=== PATIENT | male | born 1975 | race Caucasian/White ===

== ENCOUNTER 2016-07-19 10:23 | Emergency (ER) | payer BC ==
[2016-07-19 11:32] VITALS: BP 150/93
--- NOTE | 2016-07-19 11:46 | UC ---
Back Pain HPI - HPI Summary HPI Summary: MID UPPER BACK PAIN X 1 DAY + FELT A POP HAS HE WAS MOVING HIS ARMS THIS MORNING WITH A SUDDEN ONSET PAIN ON THE MID UPPER BACK NO RADIATION OF THE PAIN, NO WEAKNESS OF UPPER EXT. NO NUMBNESS OR TINGLING . - History of Current Complaint Chief Complaint: UCBackPain Stated Complaint: UPPER BACK/NECK PAIN Time Seen by Provider: 07/19/16 11:23 Hx Obtained From: Patient Onset/Duration: Sudden Onset, Lasting Days - 1, Still Present Timing: Constant Severity Initially: Moderate Severity Currently: Moderate Back Pain: Is Discrete @ - MID UPPER BACK Aggravating: Movement Associated Signs And Symptoms: Negative: Swelling, Redness, Bruising, Fever, Weakness, Numbness, Tingling - Allergies/Home Medications Allergies/Adverse Reactions: Allergies Allergy/AdvReac Type Severity Reaction Status Date / Time No Known Allergies Allergy Verified 08/25/14 08:46 PMH/Surg Hx/FS Hx/Imm Hx Cardiovascular History Of: Reports: Hypertension - Surgical History Surgical History: None - Family History Known Family History: Negative: Diabetes - Social History Alcohol Use: 6-12 a few times a week Substance Use Type: None Smoking Status (MU): Never Smoked Tobacco Review of Systems Constitutional: Negative Skin: Negative Eyes: Negative ENT: Negative Respiratory: Negative Cardiovascular: Negative All Other Systems Reviewed And Are Negative: Yes Physical Exam Triage Information Reviewed: Yes Appearance: Well-Appearing, Obese Vital Signs: Initial Vital Signs Temp 98.2 F 07/19/16 11:26 Pulse 92 07/19/16 11:26 Resp 16 07/19/16 11:26 BP 150/93 07/19/16 11:26 Pulse Ox 97 07/19/16 11:26 Vital Signs Reviewed: Yes Eyes: Positive: Conjunctiva Clear ENT: Positive: Normal ENT inspection, Hearing grossly normal, Pharynx normal Neck: Positive: Supple, Nontender, No Lymphadenopathy Respiratory Exam: Normal Respiratory: Positive: Chest non-tender, Lungs clear, Normal breath sounds Cardiovascular: Positive: RRR, No Murmur, Pulses Normal Abdominal Exam: Normal Musculoskeletal: Positive: Other: - UPPER BACK : NO SWELLING, NO ERYTHEMA , + TENDERNESS MID UPPER BACK INCREASE PAIN WITH ANY MOVEMENTS Neurological Exam: Normal Back Pain Course/Dx - Differential Dx/Diagnosis Provider Diagnoses: UPPER BACK STRAIN Discharge - Discharge Plan Condition: Stable Disposition: HOME Prescriptions: Cyclobenzaprine TAB* [Flexeril TAB*] 10 mg PO BID #20 tab Naproxen [Naproxen 500 MG TABS] 500 mg PO BID #20 tab Patient Education Materials: Thoracic Back Strain (ED) Forms: *Work Release Referrals: Felix Carballo MD [Primary Care Provider] - If Needed
== END 2016-07-19 12:08 | disposition home or self-care (01) ==
LOC: UCCORT 10:23
DX: S29.012A Strain of muscle and tendon of back wall of thorax, initial encounter (principal); E66.9 Obesity, unspecified; X58.XXXA Exposure to other specified factors, initial encounter; Y92.9 Unspecified place or not applicable
CPT/HCPCS: 99212; G0463

== ENCOUNTER 2017-01-15 07:03 | Emergency (ER) | payer BC ==
--- NOTE | 2017-01-15 07:17 | UC ---
Throat Pain/Nasal Keegan HPI - HPI Summary HPI Summary: Sore throat x 2 to 3 days with exudate noted on tonsils this morning. Sleep disrupted by sore throat, no dysphagia. - History of Current Complaint Chief Complaint: UCGeneralIllness Stated Complaint: SORE THROAT Time Seen by Provider: 01/15/17 07:14 Hx Obtained From: Patient Onset/Duration: Gradual Onset, Lasting Days - 2 Severity: Mild Cough: Nonproductive Associated Signs & Symptoms: Positive: Negative - Epiglottits Risk Factors Epiglottis Risk Factors: Negative - Allergies/Home Medications Allergies/Adverse Reactions: Allergies Allergy/AdvReac Type Severity Reaction Status Date / Time No Known Allergies Allergy Verified 01/15/17 07:08 Home Medications: Home Medications NK [No Home Medications Reported] 01/15/17 [History Confirmed 01/15/17] PMH/Surg Hx/FS Hx/Imm Hx Cardiovascular History: Hypertension - borderline hypertension by history, monitors his blood pressure with his PMD and has not been elevated enough to treat. - Surgical History Surgical History: None - Family History Known Family History: Positive: Diabetes - half brother, Other - Adopted, family history unknown aside from biological half brother. - Social History Occupation: Employed Full-time Lives: With Family Alcohol Use: Occasionally Substance Use Type: None Smoking Status (MU): Never Smoked Tobacco Review of Systems Constitutional: Negative Skin: Negative Eyes: Negative ENT: Sore Throat Respiratory: Cough - occasional only. Cardiovascular: Negative Gastrointestinal: Diarrhea - several loose stools yesterday, attributed to variety of foods at a dish to pass. Genitourinary: Negative Motor: Negative Neurovascular: Negative Musculoskeletal: Negative Neurological: Negative Psychological: Negative All Other Systems Reviewed And Are Negative: Yes Physical Exam Triage Information Reviewed: Yes Appearance: Well-Appearing, Obese Vital Signs: Initial Vital Signs Temp 98.6 F 01/15/17 07:06 Pulse 88 01/15/17 07:06 Resp 18 01/15/17 07:06 BP 151/69 01/15/17 07:06 Pulse Ox 98 01/15/17 07:06 Eye Exam: Normal ENT: Positive: Pharyngeal erythema, TMs normal, Tonsillar exudate - tonsils mildly enlarged with scant exudate. Uvula also mildly erythematous with a scant white exudate. Neck: Positive: Supple, Nontender, No Lymphadenopathy Respiratory: Positive: Lungs clear, Normal breath sounds Cardiovascular: Positive: RRR, No Murmur Musculoskeletal Exam: Normal Psychological Exam: Normal Skin Exam: Normal Diagnostics - Laboratory Diagnostic Studies Completed/Ordered: rapid strep negative. Throat Pain/Nasal Course/Dx - Course Course Of Treatment: symptomatic treatment of pharyngitis - Differential Dx/Diagnosis Provider Diagnoses: pharyngitis Discharge - Discharge Plan Condition: Stable Disposition: HOME Patient Education Materials: Pharyngitis (ED) Additional Instructions: I suggest warm water and salt gargles and use of advil 600mg up to 3 times per day for relief of pain. The symptoms should resolve in a few days. Ensure that you continue monitoring your blood pressure at home and with your primary care physician.
[2017-01-15 07:40] VITALS: BP 138/83
== END 2017-01-15 07:40 | disposition home or self-care (01) ==
LOC: UCCORT 07:03
DX: J02.9 Acute pharyngitis, unspecified (principal); R03.0 Elevated blood-pressure reading, without diagnosis of hypertension; E66.9 Obesity, unspecified
CPT/HCPCS: 87651; 99212; G0463